=== PATIENT | male | born 1975 | race Caucasian/White ===

== ENCOUNTER 2025-03-21 19:11 | Emergency (ER) | payer OTHER ==
[~2025-03-21] VITALS: Ht 170.2 cm; Wt 68.9 kg
[2025-03-21 19:48] VITALS: O2SAT 100
[2025-03-21] MEDS ORDERED: CEPH500C2 MT (20:55)
[2025-03-21] MEDS ORDERED: IBUP-2028 MT (20:55)
[2025-03-21 21:01] VITALS: BP 148/88; PULSE 82; RESP 20; TEMP 36.7; O2SAT 100
== END 2025-03-21 21:01 | disposition home or self-care (01) ==
LOC: ER 19:11
DX: R60.9 Edema, unspecified (principal); Z88.6 Allergy status to analgesic agent
CPT/HCPCS: 99283